=== PATIENT | female | born 1965 | race American Indian/Alaskan Native ===

== ENCOUNTER 2021-11-21 21:47 | Emergency (ER) | payer MEDICAID ==
[2021-11-21 22:31] VITALS: BP 111/64
--- NOTE | 2021-11-21 23:50 | XRay Report ---
LEFT FOOT, 3 VIEWS INDICATION / CLINICAL INFORMATION: injury. COMPARISON: None available. FINDINGS: There is a nondisplaced fracture involving the proximal to midportion of the proximal phalanx, fourth digit. There is suggestion that the fracture does extend intra-articularly to the MTP joint.. No additional fractures of the foot. IMPRESSION: Nondisplaced fracture involving the proximal phalanx, fourth digit. Fracture may extend i ntra-articularly. Signer Name: Fannie Nunez MD Signed: 11/21/2021 11:46 PM Workstation Name: [id number]
[2021-11-22] MEDS ORDERED: ONDANSETRON 4 MG ODT TAB PO ONE (02:01)
[2021-11-22] MEDS ORDERED: HYDROcodone/ACETAMINOPHEN 5-325 MG TAB PO ONE (02:01)
[2021-11-22] MEDS ORDERED: IBUPROFEN 600 MG TAB PO ONE (02:01)
--- NOTE | 2021-11-22 02:28 | Emergency Department Report ---
ED Lower Extremity HPI - General Chief Complaint: Extremity Injury, Lower Stated Complaint: LEFT TOE PAIN Source: patient Mode of arrival: Ambulatory Limitations: No Limitations - History of Present Illness Initial Comments: Patient is a 55-year-old -[place] female with no past medical history presented to the ED with complaint of acute onset persistent left foot and left fourth toe pain after she accidentally tripped and hit her left fourth toe against a metallic reinforcing steel placer her bathroom about 3 days ago. Patient states that she has been taking Aleve and Tylenol since the incident occurred with no relief. Patient states that the pain is especially worse with ambulation. Patient states that she is unable to wear shoes because of worsening pain in the left fourth toe and left foot. Patient denies numbness and tingling or weakness of left foot, dizziness, syncope, seizures, back pain, fall, nausea and vomiting, head or neck injuries, back pain and hip pain. MD Complaint: foot injury (Left foot and toe pain) -: Sudden, days(s) (3) Injury: Foot: Left (left foot pain), Toes: Left (4th toe pain) Type of Injury: blunt Place: home Severity: severe Severity scale (0 -10): 8 Improves With: nothing Worsens With: weight bearing, movement, palpation Context: direct blow Associated Symptoms: snap/pop sensation, swelling, able to partially bear weight. denies: numbness, tingling, unable to bear weight, ambulatory Treatments Prior to Arrival: NSAIDS - Related Data Previous Rx's Medication Instructions Recorded Last Taken Type Ibuprofen [Motrin] 600 mg PO Q8H PRN #12 tablet 09/19/18 Unknown Rx HYDROcodone/APAP 5-325 [[place] 1 each PO Q6HR PRN #12 tablet 11/22/21 Unknown Rx 5/325] Ibuprofen [Motrin] 600 mg PO Q8H PRN #30 tablet 11/22/21 Unknown Rx Allergies Allergy/AdvReac Type Severity Reaction Status Date / Time No Known Allergies Allergy Unverified 09/19/18 02:27 ED Review of Systems ROS: Stated complaint: LEFT TOE PAIN Other details as noted in HPI Constitutional: denies: chills, fever Eyes: denies: eye pain, eye discharge, vision change ENT: denies: ear pain, throat pain Respiratory: denies: cough, shortness of breath, wheezing Cardiovascular: denies: chest pain, palpitations Endocrine: no symptoms reported Gastrointestinal: denies: abdominal pain, nausea, diarrhea Genitourinary: denies: urgency, dysuria, discharge Musculoskeletal: joint swelling (left foot and 4th toe pain), arthralgia (left foot and 4th toe pain). denies: back pain Skin: denies: rash, lesions Neurological: denies: headache, weakness, paresthesias Psychiatric: denies: anxiety, depression Hematological/Lymphatic: denies: easy bleeding, easy bruising ED Past Medical Hx - Past Medical History Previous Medical History?: No - Surgical History Past Surgical History?: No - Social History Smoking Status: Never Smoker Substance Use Type: None - Medications Home Medications: Home Medications Medication Instructions Recorded Confirmed Last Taken Type Ibuprofen [Motrin] 600 mg PO Q8H PRN #12 tablet 09/19/18 Unknown Rx HYDROcodone/APAP 5-325 [[place] 1 each PO Q6HR PRN #12 tablet 11/22/21 Unknown Rx 5/325] Ibuprofen [Motrin] 600 mg PO Q8H PRN #30 tablet 11/22/21 Unknown Rx ED Physical Exam - General Limitations: No Limitations General appearance: alert, in no apparent distress - Head Head exam: Present: atraumatic, normocephalic, normal inspection - Eye Eye exam: Present: normal appearance, PERRL, EOMI Pupils: Present: normal accommodation - ENT ENT exam: Present: normal exam, normal orophraynx, mucous membranes moist, TM's normal bilaterally, normal external ear exam - Neck Neck exam: Present: normal inspection, full ROM - Respiratory Respiratory exam: Present: normal lung sounds bilaterally. Absent: respiratory distress, wheezes, rales, stridor, chest wall tenderness, accessory muscle use, decreased breath sounds, prolonged expiratory - Cardiovascular Cardiovascular Exam: Present: normal rhythm, bradycardia, normal heart sounds. Absent: systolic murmur, diastolic murmur, rubs, gallop - GI/Abdominal GI/Abdominal exam: Present: soft, normal bowel sounds. Absent: tenderness, rebound, hyperactive bowel sounds, hypoactive bowel sounds, mass, bruit - Extremities Exam Extremities exam: Present: normal inspection, tenderness (Palpable left foot and left fourth toe tenderness with mild swelling and limited range of motion due to pain ), normal capillary refill, joint swelling. Absent: full ROM (Limited range of motion of left foot and 4th toe), pedal edema, calf tenderness - Back Exam Back exam: Present: normal inspection, full ROM. Absent: tenderness, CVA tenderness (R), CVA tenderness (L), muscle spasm, vertebral tenderness - Neurological Exam Neurological exam: Present: alert, oriented X3, CN II-XII intact, normal gait, reflexes normal - Psychiatric Psychiatric exam: Present: normal affect, normal mood - Skin Skin exam: Present: warm, dry, intact, normal color. Absent: rash ED Course Vital Signs 11/21/21 22:29 Temperature 98.3 F Pulse Rate 56 L Respiratory 18 Rate Blood Pressure 111/64 O2 Sat by Pulse 97 Oximetry ED Lower Extremity MDM - Radiology Data Radiology results: report reviewed, image reviewed [facility] [address] [place] [address] XRay Report Signed Patient: HINA PRECIADO MR#: [id number] : 1965 Acct:[id number] Age/Sex: 55 / F ADM Date: 11/21/21 Loc: ED Attending Dr: Ordering Physician: ED MD ROB Date of Service: 11/21/21 Procedure(s): XR foot 3+V LT Accession Number(s): [id number] cc: ED MD ROB Fluoro Time In Minutes: LEFT FOOT, 3 VIEWS INDICATION / CLINICAL INFORMATION: injury. COMPARISON: None available. FINDINGS: There is a nondisplaced fracture involving the proximal to midportion of the proximal phalanx, fourth digit. There is suggestion that the fracture does extend intra- articularly to the MTP joint.. No additional fractures of the foot. IMPRESSION: Nondisplaced fracture involving the proximal phalanx, fourth digit. Fracture may extend intra-articularly. Signer Name: Fannie Nunez MD Signed: 11/21/2021 11:46 PM Workstation Name: [id number] Transcribed By: JR Dictated By: Fannie Nunez MD Electronically Authenticated By: Fannie Nunez MD Signed Date/Time: 11/21/212345 DD/ 42 TD/TT: - Medical Decision Making This is a 55-year-old -[place] female with no past medical history presented to the ED with complaint of acute onset persistent left foot and left fourth toe pain after she accidentally tripped and hit her left fourth toe against a metallic reinforcing steel placer her bathroom about 3 days ago. Patient states that she has been taking Aleve and Tylenol since the incident occurred with no relief. Patient states that the pain is especially worse with ambulation. Patient states that she is unable to wear shoes because of worsening pain in the left fourth toe and left foot. In the ED, patient is alert and oriented x3 and is not in any distress. Patient is hemodynamically stable. Patient was treated for pain in the ED. Left foot x-ray showed a nondisplaced fracture involving the proximal phalanx, fourth digit. Fracture may extend intra- articularly. Patient was treated for pain in the ED. The patient left foot was splinted with a postop shoe and the left fourth toe deb taped. On reevaluation, patient's pain is well controlled medication. Patient was discharged home on medications for pain and given a referral to the orthopedic surgeon on-call Dr. Mckeon for further evaluation. Patient was advised to contact the Mike's office first thing in the morning today on 11/22/2021 to to schedule a follow-up appointment. Patient was advised return to the ED immediately if symptoms get worse. - Differential Diagnosis Foot fracture; foot contusion; toe fracture; foot sprain; toe sprain Critical care attestation.: If time is entered above; I have spent that time in minutes in the direct care of this critically ill patient, excluding procedure time. ED Disposition Clinical Impression: Nondisplaced fracture of proximal phalanx of left lesser toe(s), initial encounter for closed fracture Contusion of left foot including toes Qualifiers: Encounter type: initial encounter Qualified Code(s): S90.32XA - Contusion of left foot, initial encounter; S90.122A - Contusion of left lesser toe(s) without damage to nail, initial encounter Disposition: 01 HOME / SELF CARE / HOMELESS Is pt being admited?: No Does the pt Need Aspirin: No Condition: Stable Instructions: Toe Fracture, [id number], Foot Contusion, [id number], Crush Injury of the Foot, [id number] Additional Instructions: The left foot x-ray showed a nondisplaced proximal left fourth toe fracture. Therefore take pain medications with food, drink plenty of fluids and follow-up with the orthopedic surgeon on-call Dr. Mckeon in 3 to 5 days for reevaluation. Contact Dr. Mckeon's office first thing in the morning on 11/22/2021 to schedule a follow-up appointment. Return to the ED immediately if symptoms get worse. Prescriptions: Ibuprofen [Motrin] 600 mg PO Q8H PRN #30 tablet PRN Reason: Pain HYDROcodone/APAP 5-325 [[place] 5/325] 1 each PO Q6HR PRN #12 tablet PRN Reason: Pain Referrals: NUVIA MCKEON MD [Staff Physician] - 2-3 Days Time of Disposition: 02:32 Print Language: JAPANESE
== END 2021-11-22 02:42 | disposition home or self-care (01) ==
LOC: ED 21:47
DX: S92.515A Nondisplaced fracture of proximal phalanx of left lesser toe(s), initial encounter for closed fracture (principal); S90.122A Contusion of left lesser toe(s) without damage to nail, initial encounter; X58.XXXA Exposure to other specified factors, initial encounter; Y93.89 Activity, other specified; Y92.89 Other specified places as the place of occurrence of the external cause; Y99.8 Other external cause status
CPT/HCPCS: 99283; J3490; Q0162